=== PATIENT | male | born 1990 | race Asian ===

== ENCOUNTER → 2022-04-10 09:50 | Outpatient (BNVA) | payer SELFPAY | PROVIDERS: Visit Provider Physician Assistant Medical | DX: Z02.79 Encounter for issue of other medical certificate (principal) ==

== ENCOUNTER 2024-08-29 14:52 | Emergency (ER) | payer MEDICAID, SELFPAY ==
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
[2024-08-29 15:07] VITALS: BP 127/67; PULSE 61; RESP 16; TEMP 36.8; O2SAT 97; BMI 23.0
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
[2024-08-29 17:17] VITALS: BP 127/67; PULSE 61; RESP 16; TEMP 36.8; O2SAT 97
== END 2024-08-29 17:17 | disposition home or self-care (01) ==
PROVIDERS: Emergency Provider Emergency Medicine; PCP Physician Assistant
DX: S16.1XXA Strain of muscle, fascia and tendon at neck level, initial encounter (principal); R51.9 Headache, unspecified; M54.2 Cervicalgia; V43.52XA Car driver injured in collision with other type car in traffic accident, initial encounter; Y93.9 Activity, unspecified; Y92.410 Unspecified street and highway as the place of occurrence of the external cause; Y99.8 Other external cause status
CPT/HCPCS: 70450; 72125; 99282; 99284

== ENCOUNTER → 2024-08-29 15:11 | Outpatient (BNV) | payer MEDICAID, SELFPAY | PROVIDERS: Emergency Provider Emergency Medicine; PCP Physician Assistant; Visit Provider Nuclear Medicine | DX: M54.2 Cervicalgia (principal); R51.9 Headache, unspecified | CPT/HCPCS: 70450; 72125 ==